=== PATIENT | female | born 1970 | race African-American/Black ===

== ENCOUNTER 2021-02-28 23:35 | Emergency (ER) | payer OTHER ==
[~2021-02-28] VITALS: Ht 170.2 cm; Wt 96.0 kg
[2021-03-01] MEDS ORDERED: TETANUS, DIPHTHERIA, PERTUSSIS VAC/PF 0.5ML (>7YR OLD) IM ONE (03:15)
[2021-03-01 04:57] VITALS: BP 126/79
== END 2021-03-01 05:05 | disposition home or self-care (01) ==
LOC: ER 23:35
DX: S61.214A Laceration without foreign body of right ring finger without damage to nail, initial encounter (principal); W26.0XXA Contact with knife, initial encounter; Y93.G1 Activity, food preparation and clean up; Y92.000 Kitchen of unspecified non-institutional (private) residence as the place of occurrence of the external cause; Z88.8 Allergy status to other drugs, medicaments and biological substances
CPT/HCPCS: 90471; 90715; 99283; A4217; Z7610

== ENCOUNTER 2021-07-15 18:03 | Emergency (ER) | payer MEDICAID, OTHER ==
[~2021-07-15] VITALS: Ht 170.2 cm; Wt 93.0 kg
[2021-07-15] MEDS ORDERED: SULFAMETHOXAZOLE/TRIMETHOPRIM 800/160MG TABLET PO ONE (22:00)
[2021-07-15] MEDS ORDERED: LIDOCAINE HCL 1% 20ML VIAL (Pyxis) INJ INFIL ONE (22:00)
[2021-07-15] MEDS ORDERED: CEFTRIAXONE SODIUM 1 G/VIAL IM ONE (22:00)
[2021-07-15] MEDS ORDERED: SULF1TAB48 MT (22:59)
[2021-07-15] MEDS ORDERED: CEPH500C2 MT (22:59)
[2021-07-15 23:41] VITALS: BP 135/76
== END 2021-07-15 23:44 | disposition home or self-care (01) ==
LOC: ER 18:03
DX: L03.114 Cellulitis of left upper limb (principal); Z98.890 Other specified postprocedural states; Z88.8 Allergy status to other drugs, medicaments and biological substances; Z88.2 Allergy status to sulfonamides; Z79.899 Other long term (current) drug therapy
CPT/HCPCS: 96372; 99283; J0696; J3490